=== PATIENT | female | born 1940 | race Caucasian/White ===

== ENCOUNTER 2019-07-18 19:42 | Outpatient (CLI) | payer MEDICARE ==
[2019-07-18 20:03] LABS: Hemoglobin 11.6 g/dL (12.0-16.0); Mean Corpuscular HGB CONC 29.2 g/dL (32.0-36.0); Mean Corpuscular Hemoglobin 29.1 pg (27.0-31.0); Mean Corpuscular Volume 99.6 fL (78.0-98.0); Mean Platelet Volume 7.2 fL (7.4-10.4); Platelet Count 156 thou/uL (130-400); RBC Distribution Width 16.9 % (11.5-14.5); White Blood Cell (WBC) Count 7.3 thou/uL (4.8-10.8)
[2019-07-18 20:07] LABS: ALT (SGPT) Less than 7 U/L (8-55); AST (SGOT) 13 U/L (5-34); Albumin 2.8 g/dL (3.4-4.8); Alkaline Phosphatase 105 U/L (40-110); Anion Gap 13 mmol/L (10-20); BUN (Urea Nitrogen) 10 mg/dL (9.8-20.1); Bilirubin, Total 0.4 mg/dL (0.2-1.2); Calc. Creatinine Clearance 0 mL/min (70-130); Carbon Dioxide 22 mmol/L (23-31); Chloride 105 mmol/L (98-107); Estimated GFR-MDRD 81; Globulin 2.9 g/dL (2.4-3.5); Glucose 109 mg/dL (83-110); Potassium 3.8 mmol/L (3.5-5.1); Protein, Total 5.7 g/dL (6.0-8.3); Sodium 136 mmol/L (136-145)
== END 2019-07-18 19:43 | disposition home or self-care (01) ==
LOC: BURMANOR 19:42
PROVIDERS: ATTEND Registered Nurse Community Health
DX: K21.9 Gastro-esophageal reflux disease without esophagitis (principal); E78.5 Hyperlipidemia, unspecified; I10 Essential (primary) hypertension; M62.81 Muscle weakness (generalized)
CPT/HCPCS: 80053; 85027

== ENCOUNTER 2019-08-22 12:52 | Outpatient (CLI) | payer MEDICARE ==
[2019-08-22 13:08] LABS: Bilirubin Negative (Negative); Blood, Urine Trace (Negative); Clarity Cloudy (Clear); Glucose, Urine (Dipstick) Negative (Negative); Leukocyte Large (Negative); Nitrite Positive (Negative); Protein, Urine (Dipstick) Negative (Neg-Trace); Urobilinogen 0.2 mg/dL (Less than 2)
[2019-08-22 13:09] LABS: Bacteria/HPF 2+ HPF (None Seen); RBC/HPF 0-3 HPF (0-3); Renal Epithelial 0-3 HPF (None Seen); Squamous Epithelial 0-3 HPF (0-3); Transitional Epithelial 0-3 HPF (None Seen); WBC/HPF 21-50 HPF (0-3)
[2019-08-22 13:10] LABS: Carbon Dioxide 22 mmol/L (23-31); Chloride 96 mmol/L (98-107); Hemoglobin 12.2 g/dL (12.0-16.0); Mean Corpuscular HGB CONC 29.9 g/dL (32.0-36.0); Mean Corpuscular Volume 97.3 fL (78.0-98.0); Mean Platelet Volume 7.7 fL (7.4-10.4); Platelet Count 153 thou/uL (130-400); Potassium 4.6 mmol/L (3.5-5.1); RBC Distribution Width 14.2 % (11.5-14.5); White Blood Cell (WBC) Count 5.3 thou/uL (4.8-10.8)
[2019-08-22 13:11] LABS: ALT (SGPT) Less than 7 U/L (8-55); AST (SGOT) 13 U/L (5-34); Albumin 3.2 g/dL (3.4-4.8); Alkaline Phosphatase 76 U/L (40-110); Anion Gap 14 mmol/L (10-20); BUN (Urea Nitrogen) 12 mg/dL (9.8-20.1); Bilirubin, Total 0.6 mg/dL (0.2-1.2); Calc. Creatinine Clearance 0 mL/min (70-130); Calcium 8.5 mg/dL (7.8-10.44); Estimated GFR-MDRD 90; Globulin 2.7 g/dL (2.4-3.5); Glucose 91 mg/dL (83-110); Protein, Total 5.9 g/dL (6.0-8.3)
[2019-08-22 13:14] LABS: Sodium 127 mmol/L (136-145)
== END 2019-08-22 12:53 | disposition home or self-care (01) ==
LOC: BURMANOR 12:52
PROVIDERS: ATTEND Registered Nurse Community Health
DX: N39.0 Urinary tract infection, site not specified (principal)
CPT/HCPCS: 80053; 81003; 81015; 85027; 87077; 87086; 87186

== ENCOUNTER 2019-08-24 16:37 | Outpatient (CLI) | payer MEDICARE ==
[2019-08-24 18:12] LABS: Hemoglobin 11.8 g/dL (12.0-16.0); Mean Corpuscular HGB CONC 30.1 g/dL (32.0-36.0); Mean Corpuscular Hemoglobin 29.5 pg (27.0-31.0); Mean Corpuscular Volume 98.1 fL (78.0-98.0); Mean Platelet Volume 6.3 fL (7.4-10.4); Platelet Count 143 thou/uL (130-400); RBC Distribution Width 14.2 % (11.5-14.5)
[2019-08-24 18:23] LABS: ALT (SGPT) Less than 7 U/L (8-55); AST (SGOT) 14 U/L (5-34); Albumin 2.9 g/dL (3.4-4.8); Alkaline Phosphatase 68 U/L (40-110); Anion Gap 12 mmol/L (10-20); BUN (Urea Nitrogen) 14 mg/dL (9.8-20.1); Bilirubin, Total 0.3 mg/dL (0.2-1.2); Calc. Creatinine Clearance 0 mL/min (70-130); Calcium 8.3 mg/dL (7.8-10.44); Carbon Dioxide 21 mmol/L (23-31); Chloride 99 mmol/L (98-107); Estimated GFR-MDRD Greater than 90; Globulin 2.7 g/dL (2.4-3.5); Glucose 91 mg/dL (83-110); Protein, Total 5.6 g/dL (6.0-8.3); Sodium 128 mmol/L (136-145)
[2019-08-26 14:42] LABS: 24 Hr Creatinine 417.34 mg/24 hr (710-1650); Creatinine, Urine 36.29 mg/dL (47-110); Urea Nitrogen-24Hr 4.5 g/24 hr (12-20)
== END 2019-08-24 16:38 | disposition home or self-care (01) ==
LOC: BURMANOR 16:37
PROVIDERS: ATTEND Registered Nurse Community Health
DX: E87.1 Hypo-osmolality and hyponatremia (principal)
CPT/HCPCS: 80053; 82533; 82570; 83935; 84443; 84540; 84550; 84588; 85027

== ENCOUNTER 2019-12-08 04:53 | Outpatient (CLI) | payer MEDICARE, OTHER ==
[2019-12-08 05:29] LABS: ALT (SGPT) 17 U/L (8-55); AST (SGOT) 20 U/L (5-34); Albumin 3.2 g/dL (3.4-4.8); Alkaline Phosphatase 81 U/L (40-110); Anion Gap 14 mmol/L (10-20); BUN (Urea Nitrogen) 24 mg/dL (9.8-20.1); Bilirubin, Total 0.3 mg/dL (0.2-1.2); Calc. Creatinine Clearance 0 mL/min (70-130); Calcium 8.5 mg/dL (7.8-10.44); Carbon Dioxide 24 mmol/L (23-31); Chloride 106 mmol/L (98-107); Estimated GFR-MDRD 71; Globulin 2.4 g/dL (2.4-3.5); Glucose 79 mg/dL (83-110); Potassium 4.2 mmol/L (3.5-5.1); Protein, Total 5.6 g/dL (6.0-8.3); Sodium 140 mmol/L (136-145)
== END 2019-12-08 04:54 | disposition home or self-care (01) ==
LOC: BURMANOR 04:53
PROVIDERS: ATTEND Registered Nurse Community Health
DX: I50.9 Heart failure, unspecified (principal)
CPT/HCPCS: 80053; 83880

== ENCOUNTER 2020-08-18 11:51 | Emergency (ER) | payer MEDICARE | END 2020-08-18 13:22 | disposition home or self-care (01) | LOC: BURERS 11:51 | DX: S93.402A Sprain of unspecified ligament of left ankle, initial encounter (principal); S93.602A Unspecified sprain of left foot, initial encounter; K21.9 Gastro-esophageal reflux disease without esophagitis; I10 Essential (primary) hypertension; E03.9 Hypothyroidism, unspecified; X50.9XXA Other and unspecified overexertion or strenuous movements or postures, initial encounter ==